=== PATIENT | female | born 1975 | race Caucasian/White ===

== ENCOUNTER 2020-12-18 19:21 | Emergency (ER) | payer BC ==
[2020-12-18 20:27] LABS: #Basophils 0.1 thou/uL (0.0-0.2); #Eosinphils 0.1 thou/uL (0.0-0.7); #Neutrophils 11.2 thou/uL (1.40-6.50); %Basophils 0.6 % (0.0-1.0); %Eosinophils 0.5 % (0.0-10.0); %Lymphocytes 19.6 % (21.0-51.0); %Monocytes 6.4 % (0.0-10.0); %Neutrophils 72.8 % (42.0-75.0); Hemoglobin 14.4 g/dL (12.0-16.0); Mean Corpuscular HGB CONC 33.4 g/dL (32.0-36.0); Mean Corpuscular Hemoglobin 27.9 pg (27.0-31.0); Mean Corpuscular Volume 83.4 fL (78.0-98.0); Mean Platelet Volume 6.8 fL (7.4-10.4); Platelet Count 379 thou/uL (130-400); RBC Distribution Width 13.4 % (11.5-14.5); Red Blood Cell (RBC) Count 5.16 mill/uL (4.20-5.40); White Blood Cell (WBC) Count 15.4 thou/uL (4.8-10.8)
[2020-12-18 20:47] LABS: ALT (SGPT) 17 U/L (8-55); AST (SGOT) 14 U/L (5-34); Albumin 4.1 g/dL (3.5-5.0); Alkaline Phosphatase 65 U/L (40-110); Anion Gap 15 mmol/L (10-20); BUN (Urea Nitrogen) 12 mg/dL (7.0-18.7); Bilirubin, Total 0.6 mg/dL (0.2-1.2); Calc. Creatinine Clearance 0 mL/min (70-130); Calcium 9.4 mg/dL (7.8-10.44); Carbon Dioxide 22 mmol/L (22-29); Chloride 104 mmol/L (98-107); Globulin 3.1 g/dL (2.4-3.5); Glucose 115 mg/dL (70-105); Potassium 3.8 mmol/L (3.5-5.1); Protein, Total 7.2 g/dL (6.0-8.3); Sodium 137 mmol/L (136-145)
[2020-12-18] MEDS ORDERED: Ketorolac Tromethamine 30 MG/ML VIAL ONE (22:22)
== END 2020-12-18 20:32 | disposition home or self-care (01) ==
LOC: ERS 19:21
DX: M79.602 Pain in left arm (principal); K21.9 Gastro-esophageal reflux disease without esophagitis; I12.9 Hypertensive chronic kidney disease with stage 1 through stage 4 chronic kidney disease, or unspecified chronic kidney disease; N18.30 Chronic kidney disease, stage 3 unspecified; Z79.899 Other long term (current) drug therapy
CPT/HCPCS: 36415; 71045; 80053; 84484; 85025; 93005; 96372; J1885

== ENCOUNTER 2021-03-14 13:38 | Emergency (ER) | payer OTHER ==
[2021-03-14 15:23] LABS: HIV (1/2) Antibody/Antigen Non-Reactive (NonReactive); HIV 1/2 INDEX 0.06 S/CO (<1.00)
[2021-03-14 15:37] LABS: HBSAB Concentration 44.86 mIU/mL; Hep B Surf AB Reactive (NonReactive)
[2021-03-14 16:42] LABS: Hep C Index 0.87 S/CO (0-0.79)
== END 2021-03-14 14:34 | disposition home or self-care (01) ==
LOC: ERS 13:38
DX: Z77.21 Contact with and (suspected) exposure to potentially hazardous body fluids (principal); K21.9 Gastro-esophageal reflux disease without esophagitis; Z79.899 Other long term (current) drug therapy
CPT/HCPCS: 36415; 86706; 86803; 87389; 99283

== ENCOUNTER 2022-10-23 09:32 | Inpatient (IN) | payer OTHER, BC ==
[2022-10-23] MEDS ORDERED: Tranexamic Acid 1,000 MG/10 ML VIAL ONE (09:47)
[2022-10-23] MEDS ORDERED: CEFAZOLIN 2 GM VIAL ONE (09:47)
[2022-10-23] MEDS ORDERED: Boostrix 0.5 ML (Tdap) VIAL (>/=7 yrs of age) ONE (09:50)
[2022-10-23] MEDS ORDERED: Ketamine 50 MG/ML (10ML VIAL) ONE (09:54)
[2022-10-23] MEDS ORDERED: Rocuronium Bromide 10 MG/ML (10ML VIAL) ONE (09:54)
[2022-10-23] MEDS ORDERED: Iopamidol-370 76% 500 ML MDV (1 ML CHARGE) ONE (10:08)
[2022-10-23] MEDS ORDERED: Calcium Chloride 1 GM/10 ML Abboject SYRINGE ONE (10:09)
[2022-10-23 10:11] LABS: Hematocrit 37.7 % (36.0-47.0); Hemoglobin 12.5 g/dL (12.0-16.0); Mean Corpuscular HGB CONC 33.2 g/dL (32.0-36.0); Mean Corpuscular Hemoglobin 29.3 pg (27.0-31.0); Mean Corpuscular Volume 88.3 fl (78.0-98.0); Mean Platelet Volume 8.9 fL (7.4-10.4); Platelet Count 374 10x3/uL (130-400); RBC Distribution Width 13.2 % (11.5-14.5); Red Blood Cell (RBC) Count 4.27 mill/uL (4.20-5.40); White Blood Cell (WBC) Count 26.3 10x3/uL (4.8-10.8)
[2022-10-23] MEDS ORDERED: Lidocaine 1% PF 5 ML VIAL ONE ×2 (10:11→11:41)
[2022-10-23 10:12] LABS: Manual Diff?? YES
[2022-10-23 10:13] LABS: Delete Auto Diff?? YES
[2022-10-23 10:26] LABS: INR-International Normal Ratio 1.1; PTT 25.7 sec (22.9-36.1); Prothrombin Time 14.5 sec (12.0-14.7)
[2022-10-23] MEDS ORDERED: Glucagon 1 MG/ML KIT IM PRN (10:26)
[2022-10-23] MEDS ORDERED: Ondansetron PF 4 MG/2 ML Vial IVP PRN ×2 (10:26→17:32)
[2022-10-23] MEDS ORDERED: Dextrose 50% Abboject 50 ML SYRINGE SLOW IVP PRN (10:26)
[2022-10-23] MEDS ORDERED: Dextrose 5% in Water 1,000 ML IV PRN (10:26)
[2022-10-23 10:27] LABS: ALT (SGPT) 61 U/L (8-55); AST (SGOT) 77 U/L (5-34); Albumin 3.1 g/dL (3.5-5.0); Alcohol Less than 10.0 mg/dL (Less than 10); Alkaline Phosphatase 59 U/L (40-110); Anion Gap 13 mmol/L (10-20); BUN (Urea Nitrogen) 15 mg/dL (7.0-18.7); Bilirubin, Total 0.3 mg/dL (0.2-1.2); Calc. Creatinine Clearance 0 mL/min (70-130); Carbon Dioxide 18 mmol/L (22-29); Chloride 110 mmol/L (98-107); Estimated GFR 50; Globulin 2.4 g/dL (2.4-3.5); Glucose 181 mg/dL (70-105); Potassium 4.5 mmol/L (3.5-5.1); Protein, Total 5.5 g/dL (6.0-8.3); Sodium 136 mmol/L (136-145)
[2022-10-23] MEDS ORDERED: FENTANYL 500 MCG/10 ML VIAL 2,000 MCG in Sodium Chloride 0.9% 60 ML IV PRN (10:29)
[2022-10-23] MEDS ORDERED: Sodium Chloride 0.9% 1,000 ML IV SCH ×2 (10:30→10:32)
[2022-10-23 10:39] LABS: Band 18 % (5-11); CellaVision Operator ID lab.dlt; Lymphocytes 25 % (21-51); Monocytes 8 % (0-10); Neutrophil 50 % (42-75); Platelet Adequacy Comment Platelets Normal; Polychromasia SLIGHT = 2-3 cells HPF (0-2); Total Cell Count 101
[2022-10-23 10:42] LABS: BHCG - Serum Negative (NEGATIVE); Pregs Control Background? CLEAR/WHITE (CLR/WHITE); Pregs Control Bar Appear? YES (CONTROL BAR)
[2022-10-23] MEDS ORDERED: fentaNYL 50 mcg/mL 1 mL Vial ONE (10:52)
[2022-10-23 11:13] LABS: Actual Bicarbonate (HCO3a) 18.8 mEq/L (22-28); Base Excess (BEa) -6.3 mEq/L (-2.0 to +3.0); CO2 Tension 35.9 mmHg (35.0-45.0); Carboxyhemoglobin (COHb) 0.5 gm% (0.0-3.0); Hematocrit-ABG 40 % (36.0-47.0); Hemoglobin (Hb) 13.6 g/dL (12.0-16.0); O2 Tension (PaO2), arterial 219.1 mmHg (80.0-100.0); Potassium - ABG Lab 4.14 mmol/L (3.70-5.30); pH, Arterial 7.336 (7.35-7.45)
[2022-10-23 11:17] LABS: Bacteria/HPF 1+ HPF (None Seen); Bilirubin Negative (Negative); Blood, Urine Negative (Negative); Clarity Clear (Clear); Glucose, Urine (Dipstick) Normal (Negative); Ketone, Urine Negative (Negative); Leukocyte Negative Leu/uL (Negative); Nitrite Negative (Negative); Protein, Urine (Dipstick) 30 mg/dL (Neg-Trace); RBC/HPF 0-3 HPF (0-3); Squamous Epithelial 0-3 HPF (0-3); Urobilinogen Normal mg/dL (Less than 2); WBC/HPF 0-3 HPF (0-3)
[2022-10-23 11:19] LABS: Puncture Site Right Radial
[2022-10-23 11:20] LABS: ALV-art Gradient 449.025 mmHg (0-20)
[2022-10-23 11:22] LABS: Troponin I 0.128 ng/mL (< 0.028)
[2022-10-23 11:48] LABS: Amphetamine Not Detected (NotDetected); Barbiturates Screen Not Detected (NotDetected); Benzodiazepine Screen Not Detected (NotDetected); Cocaine Metabolite Screen Not Detected (NotDetected); Methadone Not Detected (NotDetected); Methamphetamine Not Detected (NotDetected); Opiate Screen Not Detected (NotDetected); Oxycodone Screen Not Detected (NotDetected); Phencyclidine (PCP) Not Detected (NotDetected); THC/Cannabinoid Screen Not Detected (NotDetected); Tricyclic Screen Detected (NotDetected)
[2022-10-23] MEDS: Ipratropium/Albuterol 3 ML NEB NEB SCH ×2 (12:27→18:17)
[2022-10-23 13:30] LABS: Lactic Acid 2.4 mmol/L (0.5-2.2)
[2022-10-23] MEDS: Acetaminophen 500 MG TAB PO SCH ×3 (13:33→23:43)
[2022-10-23] MEDS: Clindamycin/D5W 600 MG in Premix Bag 1 BAG IVPB SCH ×2 (14:36→22:42)
[2022-10-23 15:07] LABS: Amphetamine Not Detected (NotDetected); Barbiturates Screen Not Detected (NotDetected); Benzodiazepine Screen Not Detected (NotDetected); Cocaine Metabolite Screen Not Detected (NotDetected); Methadone Not Detected (NotDetected); Methamphetamine Not Detected (NotDetected); Opiate Screen Not Detected (NotDetected); Oxycodone Screen Not Detected (NotDetected); Phencyclidine (PCP) Not Detected (NotDetected); THC/Cannabinoid Screen Not Detected (NotDetected); Tricyclic Screen Detected (NotDetected)
[2022-10-23] MEDS ORDERED: traMADol HCl 50 MG TAB PO PRN (17:13)
[2022-10-23] MEDS ORDERED: Morphine 2 MG/ML VIAL SLOW IVP PRN (17:17)
[2022-10-23] MEDS ORDERED: HYDROmorphone 10 mg/100 ml CADD IVPB PRN (17:32)
[2022-10-23] MEDS ORDERED: diphenhydrAMINE 25 MG CAP PO PRN (17:32)
[2022-10-23] MEDS ORDERED: Promethazine HCl 25 MG/ML VIAL IM PRN (17:32)
[2022-10-23] MEDS ORDERED: Naloxone HCl 0.4 mg/ml Vial IV PRN (17:32)
[2022-10-23] MEDS ORDERED: diphenhydrAMINE 50 MG/ML VIAL IM PRN (17:32)
[2022-10-23] MEDS ORDERED: diphenhydrAMINE 50 MG/ML VIAL IVP PRN (17:32)
[2022-10-23] MEDS ORDERED: Communication Order-Pharmacy FS SCH (17:45)
[2022-10-23 17:47] LABS: Actual Bicarbonate (HCO3v) 19.5 mEq/L (22-28); Calcium, Ionized (venous) 1.23 mmol/L (1.16-1.32); Chloride (VBG) 110 mmol/L (98-106); Hematocrit-VBG 42 % (36.0-47.0); Hemoglobin (Hb) 14.3 g/dL (11.7-16.0); Potassium (VBG) 3.78 mmol/L (3.70-5.30); Sodium 141.2 mmol/L (133-146); pH (venous) 7.321 (7.32-7.43)
[2022-10-23] MEDS ORDERED: traMADol HCl 50 MG TAB PO SCH (18:00)
[2022-10-23] MEDS: Dexamethasone 4 mg/ml Vial SLOW IVP SCH (18:37)
[2022-10-23] MEDS: Famotidine/PF 20 mg/2ml Vial SLOW IVP SCH (20:11)
[2022-10-23] MEDS: Gabapentin 300 MG CAP PO SCH (20:12)
[2022-10-24] MEDS: Dexamethasone 4 mg/ml Vial SLOW IVP SCH ×3 (00:06→12:06)
[2022-10-24 04:54] LABS: #Basophils 0.1 thou/uL (0.0-0.2); #Monocytes 1.3 thou/uL (0.11-0.59); #Neutrophils 15.7 thou/uL (1.40-6.50); %Basophils 0.3 % (0.0-1.0); %Lymphocytes 7.8 % (21.0-51.0); %Monocytes 7.1 % (0.0-10.0); %Neutrophils 84.4 % (42.0-75.0); Hematocrit 41.9 % (36.0-47.0); Mean Corpuscular HGB CONC 33.4 g/dL (32.0-36.0); Mean Corpuscular Hemoglobin 29.2 pg (27.0-31.0); Mean Corpuscular Volume 87.5 fl (78.0-98.0); Mean Platelet Volume 9.3 fL (7.4-10.4); RBC Distribution Width 13.7 % (11.5-14.5); Red Blood Cell (RBC) Count 4.79 mill/uL (4.20-5.40); White Blood Cell (WBC) Count 18.6 10x3/uL (4.8-10.8)
[2022-10-24 05:11] LABS: Platelet Count 270 10x3/uL (130-400)
[2022-10-24 05:25] LABS: Lactic Acid 1.7 mmol/L (0.5-2.2)
[2022-10-24 05:33] LABS: PTT 26.6 sec (22.9-36.1); Prothrombin Time 13.9 sec (12.0-14.7)
[2022-10-24] MEDS: Clindamycin/D5W 600 MG in Premix Bag 1 BAG IVPB SCH ×2 (05:41→14:05)
[2022-10-24] MEDS: Acetaminophen 500 MG TAB PO SCH ×4 (05:42→23:21)
[2022-10-24 06:39] LABS: Anion Gap 11 mmol/L (10-20); BUN (Urea Nitrogen) 16 mg/dL (7.0-18.7); CK (CPK) 2394 U/L (29-168); Calc. Creatinine Clearance 93 mL/min (70-130); Calcium 9.4 mg/dL (7.8-10.44); Carbon Dioxide 24 mmol/L (22-29); Chloride 107 mmol/L (98-107); Estimated GFR 77; Glucose 117 mg/dL (70-105); Magnesium 1.9 mg/dL (1.6-2.6); Phosphorus 3.8 mg/dL (2.3-4.7); Potassium 3.9 mmol/L (3.5-5.1); Sodium 138 mmol/L (136-145)
[2022-10-24] MEDS: Ipratropium/Albuterol 3 ML NEB NEB SCH ×3 (07:12→18:40)
[2022-10-24] MEDS: Aspirin 325 MG TAB PO SCH (08:42)
[2022-10-24] MEDS: Famotidine/PF 20 mg/2ml Vial SLOW IVP SCH (08:42)
[2022-10-24] MEDS: Gabapentin 300 MG CAP PO SCH ×2 (08:42→21:19)
[2022-10-24] MEDS: QUEtiapine 300 MG TAB PO SCH ×2 (14:24→21:20)
[2022-10-24] MEDS ORDERED: Lidocaine 1% w/Epinephrine 1:100K 20 ML VIAL FS SCH (14:30)
[2022-10-24] MEDS ORDERED: Bupivacaine 0.25% HCL 30 ML VIAL EPIDURAL SCH (14:30)
[2022-10-24] MEDS: Ketorolac Tromethamine 30 MG/ML VIAL IVP SCH ×2 (16:59→23:22)
[2022-10-24] MEDS: Pregabalin 50 MG CAP PO SCH (21:18)
[2022-10-24] MEDS: Famotidine 20 MG TAB PO SCH (21:19)
[2022-10-25 04:22] LABS: #Basophils 0.1 thou/uL (0.0-0.2); #Monocytes 1.7 thou/uL (0.11-0.59); #Neutrophils 15.7 thou/uL (1.40-6.50); %Basophils 0.2 % (0.0-1.0); %Lymphocytes 13.2 % (21.0-51.0); %Monocytes 8.4 % (0.0-10.0); %Neutrophils 77.6 % (42.0-75.0); Hematocrit 37.5 % (36.0-47.0); Hemoglobin 12.5 g/dL (12.0-16.0); Mean Corpuscular HGB CONC 33.3 g/dL (32.0-36.0); Mean Corpuscular Hemoglobin 29.3 pg (27.0-31.0); Mean Corpuscular Volume 87.8 fl (78.0-98.0); Mean Platelet Volume 9.5 fL (7.4-10.4); Platelet Count 250 10x3/uL (130-400); RBC Distribution Width 13.7 % (11.5-14.5); Red Blood Cell (RBC) Count 4.27 mill/uL (4.20-5.40); White Blood Cell (WBC) Count 20.3 10x3/uL (4.8-10.8)
[2022-10-25 04:44] LABS: Phosphorus 3.2 mg/dL (2.3-4.7)
[2022-10-25 04:48] LABS: Anion Gap 12 mmol/L (10-20); BUN (Urea Nitrogen) 24 mg/dL (7.0-18.7); CK (CPK) 1753 U/L (29-168); Calc. Creatinine Clearance 81 mL/min (70-130); Calcium 9.1 mg/dL (7.8-10.44); Carbon Dioxide 25 mmol/L (22-29); Chloride 104 mmol/L (98-107); Estimated GFR 65; Glucose 103 mg/dL (70-105); Magnesium 1.9 mg/dL (1.6-2.6); Potassium 3.8 mmol/L (3.5-5.1); Sodium 137 mmol/L (136-145)
[2022-10-25] MEDS: Acetaminophen 500 MG TAB PO SCH ×4 (05:18→23:52)
[2022-10-25] MEDS: Ketorolac Tromethamine 30 MG/ML VIAL IVP SCH (05:19)
[2022-10-25] MEDS: Ipratropium/Albuterol 3 ML NEB NEB SCH ×3 (07:06→18:13)
[2022-10-25] MEDS ORDERED: CARIPRAZINE HCL 1.5 MG PO SCH (09:00)
[2022-10-25] MEDS: Aspirin 325 MG TAB PO SCH (09:18)
[2022-10-25] MEDS: Famotidine 20 MG TAB PO SCH ×2 (09:18→21:03)
[2022-10-25] MEDS: Bupropion 150 MG XL TAB PO SCH (09:19)
[2022-10-25] MEDS: QUEtiapine 300 MG TAB PO SCH ×3 (09:19→21:05)
[2022-10-25] MEDS: Gabapentin 300 MG CAP PO SCH ×3 (09:19→21:04)
[2022-10-25] MEDS: Pregabalin 50 MG CAP PO SCH ×2 (09:23→21:06)
[2022-10-25] MEDS ORDERED: traMADol HCl 50 MG TAB PO PRN (09:23)
[2022-10-25] MEDS ORDERED: Ibuprofen 200 MG TAB PO PRN (09:24)
[2022-10-25] MEDS: VRAYLAR 1.5 MG PO SCH (09:28)
[2022-10-25] MEDS: traMADol HCl 50 MG TAB PO PRN ×3 (10:49→23:53)
[2022-10-25] MEDS ORDERED: traMADol HCl 50 MG TAB PO SCH (12:00)
[2022-10-25] MEDS: Cyclobenzaprine 10 MG TAB PO PRN (15:15)
[2022-10-26] MEDS: traMADol HCl 50 MG TAB PO PRN ×2 (05:18→11:40)
[2022-10-26] MEDS: Acetaminophen 500 MG TAB PO SCH ×3 (05:19→18:31)
[2022-10-26] MEDS: Ipratropium/Albuterol 3 ML NEB NEB SCH ×3 (07:27→19:35)
[2022-10-26] MEDS ORDERED: QUEtiapine 300 MG TAB PO SCH (09:00)
[2022-10-26] MEDS: Bupropion 150 MG XL TAB PO SCH (09:10)
[2022-10-26] MEDS: Aspirin 325 MG TAB PO SCH (09:10)
[2022-10-26] MEDS: Gabapentin 300 MG CAP PO SCH ×3 (09:10→20:13)
[2022-10-26] MEDS: Famotidine 20 MG TAB PO SCH ×2 (09:10→20:13)
[2022-10-26] MEDS: Pregabalin 50 MG CAP PO SCH ×2 (09:11→20:12)
[2022-10-26] MEDS: VRAYLAR 1.5 MG PO SCH (09:12)
[2022-10-26] MEDS: traMADol HCl 50 MG TAB PO SCH ×2 (12:44→18:31)
[2022-10-26] MEDS ORDERED: traMADol HCl 50 MG TAB PO SCH (13:00)
[2022-10-26] MEDS: Ibuprofen 200 MG TAB PO PRN (16:03)
[2022-10-26] MEDS: QUEtiapine 300 MG TAB PO SCH (20:14)
[2022-10-27] MEDS: traMADol HCl 50 MG TAB PO SCH ×5 (00:27→23:58)
[2022-10-27] MEDS: Acetaminophen 500 MG TAB PO SCH ×5 (00:28→23:59)
[2022-10-27 07:31] LABS: Anion Gap 13 mmol/L (10-20); BUN (Urea Nitrogen) 22 mg/dL (7.0-18.7); Calc. Creatinine Clearance 111 mL/min (70-130); Calcium 8.7 mg/dL (7.8-10.44); Carbon Dioxide 23 mmol/L (22-29); Chloride 106 mmol/L (98-107); Estimated GFR 95; Glucose 100 mg/dL (70-105); Potassium 3.7 mmol/L (3.5-5.1); Sodium 138 mmol/L (136-145)
[2022-10-27] MEDS: Ipratropium/Albuterol 3 ML NEB NEB SCH ×3 (07:51→18:30)
[2022-10-27] MEDS: Cyclobenzaprine 10 MG TAB PO PRN (09:24)
[2022-10-27] MEDS: Famotidine 20 MG TAB PO SCH ×2 (09:25→21:00)
[2022-10-27] MEDS: Lisinopril 20 MG TAB PO SCH (09:25)
[2022-10-27] MEDS: Ibuprofen 200 MG TAB PO PRN (09:25)
[2022-10-27] MEDS: Pregabalin 50 MG CAP PO SCH ×2 (09:25→21:00)
[2022-10-27] MEDS: Gabapentin 300 MG CAP PO SCH ×3 (09:25→20:59)
[2022-10-27] MEDS: VRAYLAR 1.5 MG PO SCH (09:26)
[2022-10-27] MEDS: Bupropion 150 MG XL TAB PO SCH (09:26)
[2022-10-27] MEDS: Aspirin 325 MG TAB PO SCH (09:26)
[2022-10-27] MEDS: Acetaminophen/Codeine 30-300mg Tablet PO SCH ×3 (10:45→20:59)
[2022-10-27] MEDS: QUEtiapine 300 MG TAB PO SCH (21:19)
[2022-10-28] MEDS: Acetaminophen 325 MG TAB PO SCH ×4 (00:14→18:39)
[2022-10-28] MEDS: Acetaminophen/Codeine 30-300mg Tablet PO SCH ×4 (04:20→20:53)
[2022-10-28] MEDS: traMADol HCl 50 MG TAB PO SCH ×3 (06:25→18:39)
[2022-10-28] MEDS: Ipratropium/Albuterol 3 ML NEB NEB SCH ×3 (08:17→18:24)
[2022-10-28 08:57] LABS: #Basophils 0.1 thou/uL (0.0-0.2); #Eosinphils 0.2 thou/uL (0.0-0.7); #Monocytes 0.9 thou/uL (0.11-0.59); #Neutrophils 9.7 thou/uL (1.40-6.50); %Basophils 0.7 % (0.0-1.0); %Eosinophils 1.5 % (0.0-10.0); %Lymphocytes 23.3 % (21.0-51.0); %Neutrophils 66.9 % (42.0-75.0); Hematocrit 42.3 % (36.0-47.0); Hemoglobin 14.2 g/dL (12.0-16.0); Mean Corpuscular HGB CONC 33.6 g/dL (32.0-36.0); Mean Corpuscular Hemoglobin 28.9 pg (27.0-31.0); Mean Corpuscular Volume 86.2 fl (78.0-98.0); Mean Platelet Volume 8.9 fL (7.4-10.4); Platelet Count 336 10x3/uL (130-400); RBC Distribution Width 13.4 % (11.5-14.5); Red Blood Cell (RBC) Count 4.91 mill/uL (4.20-5.40); White Blood Cell (WBC) Count 14.4 10x3/uL (4.8-10.8)
[2022-10-28] MEDS: VRAYLAR 1.5 MG PO SCH (09:07)
[2022-10-28] MEDS: Bupropion 150 MG XL TAB PO SCH (09:07)
[2022-10-28] MEDS: Pregabalin 50 MG CAP PO SCH ×2 (09:07→20:54)
[2022-10-28] MEDS: Gabapentin 300 MG CAP PO SCH (09:08)
[2022-10-28] MEDS: Famotidine 20 MG TAB PO SCH ×2 (09:08→20:53)
[2022-10-28] MEDS: Aspirin 325 MG TAB PO SCH (09:09)
[2022-10-28] MEDS: Lisinopril 20 MG TAB PO SCH (09:09)
[2022-10-28 09:26] LABS: Anion Gap 14 mmol/L (10-20); BUN (Urea Nitrogen) 22 mg/dL (7.0-18.7); CK (CPK) 505 U/L (29-168); Calc. Creatinine Clearance 108 mL/min (70-130); Calcium 8.8 mg/dL (7.8-10.44); Carbon Dioxide 22 mmol/L (22-29); Chloride 106 mmol/L (98-107); Estimated GFR 95; Glucose 121 mg/dL (70-105); Potassium 3.6 mmol/L (3.5-5.1); Sodium 138 mmol/L (136-145)
[2022-10-28] MEDS: Ibuprofen 200 MG TAB PO PRN ×2 (10:11→22:50)
[2022-10-28] MEDS: Cyclobenzaprine 10 MG TAB PO PRN ×2 (10:12→22:50)
[2022-10-28] MEDS ORDERED: Morphine 4 MG/ML VIAL SLOW IVP SCH (10:45)
[2022-10-28] MEDS ORDERED: Iopamidol-370 76% 500 ML MDV (1 ML CHARGE) ONE (11:08)
[2022-10-28 17:00] VITALS: BMI 29.5
[2022-10-28] MEDS: Senokot S 8.6-50 MG TAB PO SCH (20:54)
[2022-10-28] MEDS: QUEtiapine 300 MG TAB PO SCH (20:54)
[2022-10-29] MEDS: traMADol HCl 50 MG TAB PO SCH ×5 (00:26→23:24)
[2022-10-29] MEDS: Acetaminophen 325 MG TAB PO SCH ×5 (00:27→23:25)
[2022-10-29] MEDS: Acetaminophen/Codeine 30-300mg Tablet PO SCH ×4 (04:05→20:41)
[2022-10-29] MEDS: Ipratropium/Albuterol 3 ML NEB NEB SCH ×3 (07:35→19:25)
[2022-10-29] MEDS: VRAYLAR 1.5 MG PO SCH (09:10)
[2022-10-29] MEDS: Bupropion 150 MG XL TAB PO SCH (09:10)
[2022-10-29] MEDS: Pregabalin 50 MG CAP PO SCH ×2 (09:11→20:40)
[2022-10-29] MEDS: Aspirin 325 MG TAB PO SCH (09:11)
[2022-10-29] MEDS: Famotidine 20 MG TAB PO SCH ×2 (09:11→20:40)
[2022-10-29] MEDS: Senokot S 8.6-50 MG TAB PO SCH ×2 (09:12→20:40)
[2022-10-29] MEDS: Polyethylene Glycol 3350 17 GM Packet PO SCH (09:12)
[2022-10-29] MEDS: Lisinopril 20 MG TAB PO SCH (09:12)
[2022-10-29] MEDS: Cyclobenzaprine 10 MG TAB PO PRN (10:59)
[2022-10-29] MEDS: QUEtiapine 300 MG TAB PO SCH (20:40)
[2022-10-30] MEDS: Acetaminophen/Codeine 30-300mg Tablet PO SCH ×3 (02:32→14:52)
[2022-10-30] MEDS: Cyclobenzaprine 10 MG TAB PO PRN ×2 (02:32→13:02)
[2022-10-30] MEDS: traMADol HCl 50 MG TAB PO SCH ×2 (05:43→13:03)
[2022-10-30] MEDS: Acetaminophen 325 MG TAB PO SCH ×2 (05:44→13:02)
[2022-10-30] MEDS: Ibuprofen 200 MG TAB PO PRN ×2 (05:48→14:51)
[2022-10-30] MEDS: Ipratropium/Albuterol 3 ML NEB NEB SCH ×2 (07:31→12:11)
[2022-10-30] MEDS: Senokot S 8.6-50 MG TAB PO SCH (09:07)
[2022-10-30] MEDS: Aspirin 325 MG TAB PO SCH (09:08)
[2022-10-30] MEDS: Polyethylene Glycol 3350 17 GM Packet PO SCH (09:08)
[2022-10-30] MEDS: Pregabalin 50 MG CAP PO SCH (09:08)
[2022-10-30] MEDS: Lisinopril 20 MG TAB PO SCH (09:09)
[2022-10-30] MEDS: Famotidine 20 MG TAB PO SCH (09:09)
[2022-10-30] MEDS: Bupropion 150 MG XL TAB PO SCH (09:21)
[2022-10-30 17:27] VITALS: BP 115/72; TEMP 99.4
== END 2022-10-30 14:30 | DRG 199 ==
LOC: ERS 09:32 → CCU 12:05 → SURG A 10-24 21:56
PROVIDERS: ADMIT Surgery; ATTEND Surgery
PROC: 0W9B00Z Drainage of Left Pleural Cavity with Drainage Device, Open Approach (ICD-10-PCS; principal; 2022-10-23)
PROC: 02HV33Z Insertion of Infusion Device into Superior Vena Cava, Percutaneous Approach (ICD-10-PCS; 2022-10-23)
PROC: 30233N1 Transfusion of Nonautologous Red Blood Cells into Peripheral Vein, Percutaneous Approach (ICD-10-PCS; 2022-10-23)
PROC: 30233L1 Transfusion of Nonautologous Fresh Plasma into Peripheral Vein, Percutaneous Approach (ICD-10-PCS; 2022-10-23)
PROC: 4A033R1 Measurement of Arterial Saturation, Peripheral, Percutaneous Approach (ICD-10-PCS; 2022-10-23)
PROC: 4A043R1 Measurement of Venous Saturation, Peripheral, Percutaneous Approach (ICD-10-PCS; 2022-10-23)
PROC: 0HQ0XZZ Repair Scalp Skin, External Approach (ICD-10-PCS; 2022-10-23)
PROC: 0HQEXZZ Repair Left Lower Arm Skin, External Approach (ICD-10-PCS; 2022-10-23)
PROC: 0HQDXZZ Repair Right Lower Arm Skin, External Approach (ICD-10-PCS; 2022-10-23)
PROC: 0HQ1XZZ Repair Face Skin, External Approach (ICD-10-PCS; 2022-10-23)
PROC: 0WPBX0Z Removal of Drainage Device from Left Pleural Cavity, External Approach (ICD-10-PCS; 2022-10-24)
PROC: 0W9B00Z Drainage of Left Pleural Cavity with Drainage Device, Open Approach (ICD-10-PCS; 2022-10-24)
DX: S27.2XXA Traumatic hemopneumothorax, initial encounter (principal); I77.74 Dissection of vertebral artery; T79.4XXA Traumatic shock, initial encounter; J96.00 Acute respiratory failure, unspecified whether with hypoxia or hypercapnia; S12.000A Unspecified displaced fracture of first cervical vertebra, initial encounter for closed fracture; S06.0XAA Concussion with loss of consciousness status unknown, initial encounter; S22.42XA Multiple fractures of ribs, left side, initial encounter for closed fracture; S27.321A Contusion of lung, unilateral, initial encounter; E87.20 Acidosis, unspecified; V89.2XXA Person injured in unspecified motor-vehicle accident, traffic, initial encounter; Z88.0 Allergy status to penicillin; S42.102A Fracture of unspecified part of scapula, left shoulder, initial encounter for closed fracture; S42.002A Fracture of unspecified part of left clavicle, initial encounter for closed fracture; S51.012A Laceration without foreign body of left elbow, initial encounter; K21.9 Gastro-esophageal reflux disease without esophagitis
CPT/HCPCS: 12005; 12015; 31500; 36415; 36416; 36430; 70450; 70498; 71045; 71260; 72125; 72170; 74177; 80048; 80053; 80306; 80307; 81001; 82550; 82805; 83605; 83690; 83735; 84100; 84484; 84703; 85025; 85610; 85730; 86850; 86900; 86901; 90471; 90715; 93005; 94002; 94640; 94760; 96365; 96375; 96376; 97139; 99292; G0390; J1100; J1200; J1650; J1885; J2405; J3010; J3490; J7050; J7620; P9016; P9048; Q9967; S0020; S0028

== ENCOUNTER 2022-11-11 13:02 | Outpatient (CLI) | payer BC | END 2022-11-11 13:03 | disposition home or self-care (01) | LOC: SCSRAD 13:02 | PROVIDERS: ATTEND Neurological Surgery | DX: S12.000A Unspecified displaced fracture of first cervical vertebra, initial encounter for closed fracture (principal); S12.001D Unspecified nondisplaced fracture of first cervical vertebra, subsequent encounter for fracture with routine healing; M47.812 Spondylosis without myelopathy or radiculopathy, cervical region | CPT/HCPCS: 72040 ==

== ENCOUNTER 2022-12-29 10:28 | Day surgery (SDC) | payer BC ==
[2022-12-26 09:54] VITALS: BMI 29.6
[2022-12-29] MEDS ORDERED: LevoFLOXacin 500 mg/D5W 100 ML BAG ONE (11:33)
[2022-12-29] MEDS ORDERED: fentaNYL PF 100 MCG/2 ML SYRINGE ONE (12:06)
[2022-12-29] MEDS ORDERED: Lidocaine-Prilocaine 2.5% Cream 5 GM TUBE ONE (12:06)
[2022-12-29] MEDS ORDERED: Midazolam HCl 2 mg/2 ml Vial ONE (12:07)
[2022-12-29] MEDS ORDERED: Bupivacaine PF 0.5% 30 ML VIAL ONE (12:23)
[2022-12-29] MEDS ORDERED: PROPOFOL 200 MG/20 ML VIAL ONE (12:36)
[2022-12-29] MEDS ORDERED: Rocuronium Bromide 10 MG/ML (10ML VIAL) ONE (12:36)
[2022-12-29] MEDS ORDERED: diphenhydrAMINE 50 MG/ML VIAL ONE (12:36)
[2022-12-29] MEDS ORDERED: Lidocaine 1% PF 5 ML VIAL ONE (12:36)
[2022-12-29] MEDS ORDERED: NEOSTIGMINE 3 MG/3 ML SYR 3 MG/3 ML SYRINGE ONE (12:36)
[2022-12-29] MEDS ORDERED: Ondansetron PF 4 MG/2 ML Vial ONE (12:36)
[2022-12-29] MEDS ORDERED: Glycopyrrolate 0.2 MG/ML 5 ML SYRINGE ONE (12:36)
[2022-12-29] MEDS ORDERED: Dexamethasone 20 MG/5 ML VIAL ONE (12:36)
[2022-12-29] MEDS ORDERED: PHENYLEPHRINE-NS 100 MCG/ML 10 ML SYRINGE ONE (12:36)
[2022-12-29] MEDS ORDERED: Clindamycin/D5W 900 mg/50 ml Premix Bag ONE (12:37)
[2022-12-29] MEDS ORDERED: fentaNYL 50 mcg/mL 1 mL Vial ONE ×3 (14:42→15:21)
[2022-12-29] MEDS ORDERED: HYDROcodone/Acetaminophen 5/325 mg Tablet ONE (16:41)
== END 2022-12-29 17:15 | disposition home or self-care (01) ==
LOC: SDC 10:28
PROVIDERS: ATTEND Orthopaedic Surgery
PROC: 0PSB04Z Reposition Left Clavicle with Internal Fixation Device, Open Approach (ICD-10-PCS; principal; 2022-12-29)
DX: S42.022D Displaced fracture of shaft of left clavicle, subsequent encounter for fracture with routine healing (principal); S42.115D Nondisplaced fracture of body of scapula, left shoulder, subsequent encounter for fracture with routine healing; E78.5 Hyperlipidemia, unspecified; D50.9 Iron deficiency anemia, unspecified; F31.9 Bipolar disorder, unspecified; K21.9 Gastro-esophageal reflux disease without esophagitis; I12.9 Hypertensive chronic kidney disease with stage 1 through stage 4 chronic kidney disease, or unspecified chronic kidney disease; N18.30 Chronic kidney disease, stage 3 unspecified; N17.9 Acute kidney failure, unspecified; E78.00 Pure hypercholesterolemia, unspecified; F33.9 Major depressive disorder, recurrent, unspecified; Z98.51 Tubal ligation status; Z98.890 Other specified postprocedural states; Z88.0 Allergy status to penicillin; X58.XXXA Exposure to other specified factors, initial encounter
CPT/HCPCS: C1713; J1956; J2250; J3010; J3490; S0020